=== PATIENT | female | born 1995 | race Caucasian/White ===

== ENCOUNTER 2018-07-31 13:48 | Emergency (ER) | payer OTHER ==
[2018-07-31 13:53] VITALS: BP 135/78
--- NOTE | 2018-07-31 14:00 | EDPHY ---
H & P Stated Complaint: cold symptoms for a couple days, increasing SOB Time Seen by Provider: 07/31/18 13:59 - Personal History LMP (Females 10-55): Now - Medical/Surgical History Hx Asthma: No Hx Chronic Respiratory Disease: No Hx Diabetes: No Hx Cardiac Disease: No Hx Renal Disease: No Hx Cirrhosis: No Hx Alcoholism: No Hx HIV/AIDS: No Hx Splenectomy or Spleen Trauma: No Other PMH: asthma - Social History Smoking Status: Never smoked Constitutional: Initial Vital Signs Temperature (C) 37.4 C 07/31/18 13:51 Heart Rate 91 07/31/18 13:51 Respiratory Rate 18 07/31/18 13:51 Blood Pressure 135/78 H 07/31/18 13:51 O2 Sat (%) 96 07/31/18 13:51 O2 Delivery Mode Room Air Allergies/Adverse Reactions: No Known Allergies Allergy (Unverified 07/31/18 13:51) Home Medications: Medication Instructions Recorded ALBUTEROL SULFATE 07/31/18 Ipratropium/Albuterol [Combivent 1 inh IH QID #1 mdi 07/31/18 Respimat Inhal Midkiff(*)] predniSONE 40 mg PO DAILY #10 tab 07/31/18 Medical Decision Making ED Course/Re-evaluation: CHIEF COMPLAINT: Shortness of breath HISTORY OF PRESENT ILLNESS: The patient is a 22 y/o female with a history of asthma complaining of worsening shortness of breath, onset several days ago. She developed cold-like symptoms several days ago, which have progressively worsened. She tried using her albuterol inhaler, without relief of symptoms. Denies headache, chest pain, abdominal pain, urinary or bowel complaints, numbness, paresthesias. REVIEW OF SYSTEMS: A comprehensive 10 system review of systems is otherwise negative aside from elements mentioned in the history of present illness and medical decision making. PHYSICAL EXAM: HR, BP, O2 Sat, RR. Temp noted General Appearance: Alert, well hydrated, appropriate, and non-toxic appearing. Head: Atraumatic without scalp tenderness or obvious injury Eyes: Pupils equal, round, reactive to light and accommodation, EOMI, no trauma , no injection. Ears: Clear bilaterally, no perforation, normal landmarks Nose: Atraumatic, no rhinorrhea, clear. Throat: There is no erythema or exudates, no lesions, normal tonsils, mucus membranes moist. Neck: Supple, 2+ carotid upstroke, nontender, no lymphadenopathy. Respiratory: No retractions, no distress, no wheezes, and no accessory muscle use. Lungs are clear to auscultation bilaterally. Cardiovascular: Regular rate and rhythm, no murmurs, rubs, or gallops. Bilateral carotid, radial, dorsalis pedis, and posterior tibial pulses intact. Good capillary refill all extremities. Gastrointestinal: Abdomen is soft, nontender, non-distended, no masses, no rebound, no guarding, no peritoneal signs. Musculoskeletal: Normal active ROM of all extremities, atraumatic. Neurological: Alert, appropriate, and interactive. The patient has normal DTRs and non-focal cranial nerves, motor, sensory, and cerebellar exam. Skin: No rashes, good turgor, no nodules on palpation. Past medical history: Asthma Past surgical history: Denies Family history: Denies Social history: Friend at bedside, student at , lives in [place] DIAGNOSTICS/PROCEDURES/CRITICAL CARE TIME: Not indicated. DIFFERENTIAL DIAGNOSIS: The differential diagnosis for the patient's shortness of breath and hypoxemia included but was not limited to viral bronchitis, pneumonia, myocardial infarction, acute mountain sickness, high altitude pulmonary edema, congestive heart failure, and pulmonary embolus. MEDICAL DECISION MAKING: The patient is a 22 y/o female with a history of asthma presenting with worsening shortness of breath after developing a cold several days ago. Her symptoms did not improve after using her albuterol inhaler. She has a normal physical exam with normal lung sounds. Laboratory and imaging studies are not indicated at this time as her symptoms are consistent with viral bronchitis. DuoNeb and 40mg PO Prednisone administered. 1430: Reassessed patient, she is feeling better after the DuoNeb. I discussed Combivent Respimat inhaler and Prednisone prescription. Return precautions provided; patient is comfortable with this plan. - Data Points Medications Given: Discontinued Medications Albuterol/Ipratropium (Duoneb) 3 ml IH EDNOW ONE Stop: 07/31/18 14:16 Last Admin: 07/31/18 14:17 Dose: 3 ml Prednisone (Prednisone) 40 mg PO EDNOW ONE Stop: 07/31/18 14:17 Last Admin: 07/31/18 14:24 Dose: 40 mg Departure - Departure Disposition: Home, Routine, Self-Care Clinical Impression: Viral bronchitis Asthma exacerbation Qualifiers: Asthma severity: mild Asthma persistence: unspecified Qualified Code(s): J45.901 - Unspecified asthma with (acute) exacerbation Condition: Good Instructions: Asthma (ED), Acute Bronchitis (ED), Shortness of Breath (ED) Additional Instructions: 1. Use the Combivent Respimat Inhaler as prescribed. 2. Take Prednisone as prescribed. 3. Follow-up with your primary doctor within 72 hours. 4. Return to the Emergency Department for fever, chest pain, shortness of breath , increasing pain or other worsening of condition. Referrals: RICHI DOWNS [Primary Care Provider] - As per Instructions Prescriptions: Ipratropium/Albuterol [Combivent Respimat Inhal Midkiff(*)] 1 inh IH QID #1 mdi predniSONE 40 mg PO DAILY #10 tab Report Scribed for: Waldemar Perez Report Scribed by: Dianna Mendez Date of Report: 07/31/18 Time of Report: 14:14
[2018-07-31] MEDS ORDERED: IPRATROPIUM/ALBUTEROL 3 ML DEYVIAL IH ONE (14:15)
[2018-07-31] MEDS ORDERED: predniSONE 20 MG TAB PO ONE (14:16)
== END 2018-07-31 14:30 | disposition home or self-care (01) ==
DX: J20.8 Acute bronchitis due to other specified organisms (principal); J45.901 Unspecified asthma with (acute) exacerbation
CPT/HCPCS: J7512